=== PATIENT | male | born 1970 | race Caucasian/White ===

== ENCOUNTER 2020-11-02 18:00 | Inpatient (IN) | payer OTHER, SELFPAY ==
[2020-11-02] VITALS (41 sets, daily range): BP systolic 109–185; BP diastolic 66–131; PULSE 54–94; RESP 12–36; TEMP 36.7; O2SAT 94–100
--- NOTE | ~2020-11-02 | XR_ITS ---
EXAMINATION: XR chest ET placement DATE: 11/02/2020 22:46 INDICATION: Intubation. TECHNIQUE: A single frontal view of the chest was obtained. COMPARISON: None. FINDINGS: The chest demonstrates clear lungs without pneumonia, pleural effusion, or pneumothorax. Th e heart size is normal. The endotracheal tube tip is 6.0 cm above the migue. The nasogastric tube ti p is beyond the inferior margin of the radiograph, but at least to the stomach. IMPRESSION: 1. No acute cardiopulmonary disease. Reviewed, dictated and finalized at location A.
--- NOTE | ~2020-11-02 | XR_ITS ---
EXAMINATION: XR abdomen NG/feed tube insert DATE: 11/02/2020 22:46 INDICATION: Orogastric tube placement. TECHNIQUE: A supine view of the abdomen was obtained. COMPARISON: None. FINDINGS: The lower abdomen is excluded. There are no dilated loops of bowel. The nasogastric tube ti p is in the stomach. IMPRESSION: 1. Nasogastric tube tip in the stomach. Reviewed, dictated and finalized at location A.
--- NOTE | ~2020-11-02 | XR_ITS ---
EXAMINATION: XR chest 1V portable DATE: 11/03/2020 06:09 INDICATION: Respiratory failure TECHNIQUE: frontal view of the chest was obtained. COMPARISON: Chest radiograph dated 11/02/2020 FINDINGS: Endotracheal tube tip 5.7 cm above the migue. Nasogastric tube tip in the stomach. No focal airspace opacities, pulmonary edema, pleural effusion or pneumothorax. The cardiomediastinal silhouette is normal. Mild upper thoracic and upper lumbar levocurvature. IMPRESSION: 1. No acute cardiopulmonary disease. Reviewed, dictated and finalized at location A.
--- NOTE | 2020-11-02 18:08 | ECG_ITS ---
Measurements Intervals Remer Rate: 80 P: 46 AZ: 166 QRS: 81 QRSD: 89 T: 53 QT: 370 QTc: 428 Interpretive Statements SINUS RHYTHM POSSIBLE LEFT ATRIAL ENLARGEMENT INCOMPLETE RIGHT BUNDLE BRANCH BLOCK BORDERLINE ECG Electronically Signed On 11-02-2020 18:36:33 CDT by Bc Patterson D.O.
[2020-11-02 18:16] LABS: Basophils Absolute Auto 0.1 K/mm3 (0.0-0.1); Basophils Percent Auto 0.8 % (0.2-1.2); Eosinophils Absolute Auto 0.3 K/mm3 (0-0.3); Eosinophils Percent Auto 4.3 % (0-4.4); Hematocrit 38.7 % (42.0-52.0); Hemoglobin 12.6 g/dL (14.0-18.0); Immature Granulocyte Absolute 0.02 K/mm3 (0.00-0.031); Immature Granulocyte Percent A 0.3 % (0-0.5); Lymphocytes Percent Auto 24.2 % (18.3-44.2); Mean Corpuscular HGB Conc 32.6 g/dl (32-36); Mean Corpuscular Hemoglobin 30.4 pg (26-34); Mean Corpuscular Volume 93.3 fl (80-100); Mean Platelet Volume 9.1 fl (7.4-10.4); Monocytes Absolute Auto 0.7 K/mm3 (0.1-0.6); Monocytes Percent Auto 9.4 % (2.6-8.5); Neutrophils Absolute Auto 4.8 K/mm3 (1.3-6.7); Platelet Count Result 237 k/mm3 (150-375); Red Blood Count 4.15 M/mm3 (4.6-6.20); Red Cell Distribution Width 13.3 % (11.5-14.5); White Blood Count 7.8 K/mm3 (4.5-10.0)
[2020-11-02 18:30] LABS: Acetaminophen < 10 ug/mL (10-30); Ethanol < 10 mg/dL (<10); Salicylate < 1.0 mg/dL (2-20)
[2020-11-02 19:47] LABS: Add Urine Microscopic? YES; Appearance Urine Clear (Clear); Bilirubin Urine Negative (Negative); Blood Urine Negative (Negative); Color Urine Yellow (Yellow); Glucose Urine UA 1+ mg/dL (Negative); Ketones Urine Negative (Negative); Leukocyte Esterase Ur Negative LEU/UL (Negative); Mucus Urine Rare /lpf; Nitrate Urine Negative (Negative); Protein Urine 1+ mg/dL (Negative); RBC Urine 0-2 /hpf (0-2); Specific Grav Ur 1.026 (1.001-1.035); WBC Urine 0-3 /hpf
[2020-11-02 19:58] LABS: Barbiturate Screen Urine Negative (Negative); Benzodiazepines Screen Urine Positive (Negative)
[2020-11-02 19:59] LABS: Cannabinoid Screen Urine Negative (Negative); Cocaine Screen Urine Negative (Negative); Methadone Screen Urine Negative (Negative); Opiate Screen Urine Negative (Negative); Phencyclidine Screen Urine Negative (Negative)
[2020-11-02 20:13] LABS: Alanine Aminotransferase 19 U/L (4-50); Albumin Level 3.7 g/dL (3.5-5.1); Alkaline Phosphatase 68 U/L (38-126); Anion Gap 6 mmol/L (8-16); Aspartate Amino Transferase 27 U/L (17-59); Bilirubin,Total 0.2 mg/dL (0.2-1.3); Blood Urea Nitrogen 20 mg/dL (9-20); Calcium 8.7 mg/dL (8.4-10.2); Carbon Dioxide 26 mmol/L (22-30); Chloride 107 mmol/L (98-107); Estimated CRCL calculation 143 ml/min; Estimated Glomerular Filt Rate > 60; Glucose 111 mg/dL (75-110); Potassium 4.2 mmol/L (3.4-5.0); Sodium 139 mmol/L (137-145)
[2020-11-02 20:14] LABS: Amphetamine Screen Urine Positive (Negative)
[2020-11-02] MEDS: NALOXONE HCL INJ 2 MG/2 ML AMP 4 MG IM (21:02)
--- NOTE | 2020-11-02 21:19 | PC.NURSE ---
Addendum entered by Ramón Augustin RN 11/02/20 21:47: orginal note read alert x ox3, should be o x 1 Original Note: 4 mg of narcan given ivp per erp verbal order pt alert s/p ox 3
--- NOTE | 2020-11-02 21:33 | PC.NURSE ---
pt know lethargic, slurred words has snoring respiration @ times. advised erp.
[2020-11-02] MEDS: NALOXONE HCL INJ 2 MG/2 ML AMP (21:40)
[2020-11-02] MEDS: KETAMINE HCL (*CRX) 500 MG/10 ML VIAL (22:21)
[2020-11-02] MEDS: RAPID SEQUENCE INTUBATION KIT 1 EACH (22:22)
--- NOTE | 2020-11-02 22:23 | PC.NURSE ---
etomidate 20 mg ivp
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
[2020-11-02] MEDS: PROPOFOL IV EMULSION 100 ML 3.39 MG IV CONT (22:45)
--- NOTE | 2020-11-02 22:46 | PC.NURSE ---
pt intubated with a # 8 @ 24 lip line vent 450, 20 peep 5 50 % o2
[2020-11-02 23:24] LABS: Alveolar/Arterial O2 Gradient 96.4 mmHg; Base Excess ABG 0.1 mEq/l (+/-2.0); Fractional Inspired Oxygen 50 %; HCO3 ABG 25.3 mEq/l (22.0-26.0); Methemoglobin ABG 0.4 %THb (0-1.5); Oxygen Content ABG 20.1 %vol (16.0-22.0); Oxygen Saturation ABG 99.4 % (95.0-100.0); Oxyhemoglobin 97.6 % THb (90.0-100.0); PCO2 ABG 42.8 mmHg (35.0-45.0); PO2 FiO2 Ratio Arterial Blood 4.24 %; Total Hemoglobin 14.3 g/dL (12.0-18.0); pH ABG 7.389 (7.350-7.450)
[2020-11-02 23:25] LABS: Arterial Blood Gas PEEP 5 cmH2O; Arterial Blood Gas Tidal Volume 450 ml; Arterial Blood Gas Vent Mode CMV; Arterial Blood Gas Ventilator rate 20 /MIN; Device VENTILATOR; Modified Allen's Test Pass; Site Drawn RIGHT RADIAL
--- NOTE | 2020-11-02 23:47 | PC.NURSE ---
Report received from Ramón BREWER From the Emergency Department by telephone at [phone].
[2020-11-03] VITALS (25 sets, daily range): BP systolic 118–156; BP diastolic 82–97; PULSE 61–88; RESP 14–21; TEMP 36.3–36.7; O2SAT 96–100; BMI 29.9; BMI 30.3
--- NOTE | 2020-11-03 00:21 | ADMGEN ---
This patient, Zeeshan Avendano, was admitted to Intensive Care Unit-6 from the Emergency Department at 0010. Patient/family oriented to hospital policies and general routines including ID bracelet, bed and alarms, visiting hours, pain management, procedures, bathroom and other care routines, personal items, smoking policy, room service/diet, and visiting hours. Information on how to activate the Rapid Response Team has been discussed. Patient/Family are encouraged to report perceived risks to care and to ask questions if they do not understand what they are told or what they should do.
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
[2020-11-03] MEDS: SODIUM CHLORIDE 0.9% IV 1,000 ML 125 ML IV CONT ×2 (00:35→07:58)
[2020-11-03] MEDS: PROPOFOL IV EMULSION 100 ML 13.56 MG IV CONT ×2 (00:52→06:29)
[2020-11-03] MEDS: MIDAZOLAM 100MG/NS 100ML(*CRX) 100 MG/100 ML BAG IV CONT (02:05)
[2020-11-03 05:00] LABS: Alveolar/Arterial O2 Gradient 48.8 mmHg; Carboxyhemoglobin 0.3 % THb (0-2.0); Fractional Inspired Oxygen 30 %; HCO3 ABG 23.2 mEq/l (22.0-26.0); Methemoglobin ABG 0.4 %THb (0-1.5); Oxygen Content ABG 19.1 %vol (16.0-22.0); Oxygen Saturation ABG 98.9 % (95.0-100.0); Oxyhemoglobin 97.5 % THb (90.0-100.0); PCO2 ABG 30.1 mmHg (35.0-45.0); PO2 ABG 129.7 mmHg (80.0-100.0); PO2 FiO2 Ratio Arterial Blood 4.32 %; Reduced Hemoglobin 1.8 %THb (0-5.0); Total Hemoglobin 13.8 g/dL (12.0-18.0); pH ABG 7.505 (7.350-7.450)
[2020-11-03 05:03] LABS: Device VENTILATOR; Modified Allen's Test Unable to perform; Site Drawn RIGHT RADIAL
[2020-11-03 05:04] LABS: Arterial Blood Gas PEEP 5 cmH2O; Arterial Blood Gas Tidal Volume 450 ml; Arterial Blood Gas Vent Mode CMV; Arterial Blood Gas Ventilator rate 20 /MIN
[2020-11-03 08:29] LABS: Basophils Absolute Auto 0.1 K/mm3 (0.0-0.1); Basophils Percent Auto 0.7 % (0.2-1.2); Eosinophils Absolute Auto 0.3 K/mm3 (0-0.3); Eosinophils Percent Auto 2.6 % (0-4.4); Hematocrit 38.5 % (42.0-52.0); Hemoglobin 12.7 g/dL (14.0-18.0); Immature Granulocyte Absolute 0.03 K/mm3 (0.00-0.031); Immature Granulocyte Percent A 0.2 % (0-0.5); Lymphocytes Percent Auto 25.5 % (18.3-44.2); Monocytes Percent Auto 8.1 % (2.6-8.5); Neutrophils Absolute Auto 7.7 K/mm3 (1.3-6.7); Neutrophils Percent Auto 62.9 % (45.5-73.1); Platelet Count Result 248 k/mm3 (150-375); Red Blood Count 4.23 M/mm3 (4.6-6.20); Red Cell Distribution Width 13.3 % (11.5-14.5); White Blood Count 12.2 K/mm3 (4.5-10.0)
[2020-11-03 08:42] LABS: Anion Gap 5 mmol/L (8-16); Blood Urea Nitrogen 18 mg/dL (9-20); Calcium 8.5 mg/dL (8.4-10.2); Carbon Dioxide 26 mmol/L (22-30); Chloride 109 mmol/L (98-107); Estimated CRCL calculation 156 ml/min; Estimated Glomerular Filt Rate > 60; Glucose 106 mg/dL (75-110); Potassium 3.3 mmol/L (3.4-5.0); Sodium 140 mmol/L (137-145)
[2020-11-03 09:21] LABS: HIV 1/2 Ab P24 Ag Result Negative (Negative)
[2020-11-03] MEDS: FAMOTIDINE 20 MG/2 ML VIAL IV PUSH (09:23)
[2020-11-03] MEDS: POTASSIUM CHLORIDE 20 MEQ PACKET (FOR LIQUID) 40 MEQ FEED TUBE (10:25)
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
[2020-11-03] MEDS: NICOTINE (*PBKC) 21 MG PATCH 1 PATCH TRANSDERM (12:21)
--- NOTE | 2020-11-03 16:50 | PM.IMPN ---
Subjective Date/time seen: 11/03/20 16:50 Interval history: 50yo male with a past medical history of polysubstance abuse, hepatitis-C, and CHF who [facility] eating 2 mg Xanax bars. He was intubated in the ED. Patient extubated today. Objective Data Vital Signs Vital Signs: Vital Signs - 24 hr 11/02/20 18:01 11/02/20 18:08 11/02/20 18:15 Temperature 98.0 F Pulse Rate 83 82 79 Respiratory Rate 15 19 18 Blood Pressure 113/75 Pulse Oximetry 99 99 100 11/02/20 18:19 11/02/20 18:30 11/02/20 18:31 Temperature Pulse Rate 79 72 75 Respiratory Rate 21 H 22 H 19 Blood Pressure 115/85 130/80 Pulse Oximetry 100 95 97 11/02/20 18:45 11/02/20 18:46 11/02/20 19:00 Temperature Pulse Rate 74 76 72 Respiratory Rate 35 H 25 H 23 H Blood Pressure 133/87 Pulse Oximetry 94 96 94 11/02/20 19:01 11/02/20 19:15 11/02/20 19:16 Temperature Pulse Rate 77 73 75 Respiratory Rate 19 19 14 Blood Pressure 128/80 140/87 Pulse Oximetry 98 95 99 11/02/20 19:17 11/02/20 19:20 11/02/20 19:30 Temperature Pulse Rate 73 79 89 Respiratory Rate 19 17 24 H Blood Pressure 127/89 127/89 Pulse Oximetry 100 99 11/02/20 19:31 11/02/20 19:45 11/02/20 19:46 Temperature Pulse Rate 73 65 67 Respiratory Rate 13 17 12 Blood Pressure 140/88 154/87 H Pulse Oximetry 11/02/20 19:48 11/02/20 20:00 11/02/20 20:15 Temperature Pulse Rate 74 62 73 Respiratory Rate 13 13 14 Blood Pressure 152/93 H Pulse Oximetry 11/02/20 20:25 11/02/20 20:30 11/02/20 20:45 Temperature Pulse Rate 67 69 54 L Respiratory Rate 18 14 13 Blood Pressure 152/93 H Pulse Oximetry 99 11/02/20 21:00 11/02/20 21:15 11/02/20 21:30 Temperature Pulse Rate 59 L 57 L 94 Respiratory Rate 13 18 24 H Blood Pressure Pulse Oximetry 99 11/02/20 21:45 11/02/20 22:02 11/02/20 22:05 Temperature Pulse Rate 93 93 81 Respiratory Rate 31 H 36 H 24 H Blood Pressure 160/131 H Pulse Oximetry 96 11/02/20 22:15 11/02/20 22:16 11/02/20 22:25 Temperature Pulse Rate 91 89 69 Respiratory Rate 21 H 25 H 26 H Blood Pressure 160/112 H 185/110 H Pulse Oximetry 97 99 100 11/02/20 22:30 11/02/20 22:31 11/02/20 22:45 Temperature Pulse Rate 89 93 94 Respiratory Rate 22 H 20 18 Blood Pressure 159/112 H Pulse Oximetry 99 11/02/20 22:53 11/02/20 23:00 11/02/20 23:02 Temperature Pulse Rate 79 77 73 Respiratory Rate 18 20 22 H Blood Pressure 109/66 184/125 H Pulse Oximetry 100 99 100 11/02/20 23:15 11/02/20 23:52 11/03/20 00:10 Temperature 97.8 F Pulse Rate 84 87 73 Respiratory Rate 18 18 20 Blood Pressure 130/87 137/97 H Pulse Oximetry 94 100 11/03/20 00:17 11/03/20 00:52 11/03/20 01:44 Temperature Pulse Rate 73 70 71 Respiratory Rate 20 Blood Pressure Pulse Oximetry 100 11/03/20 02:00 11/03/20 02:05 11/03/20 04:00 Temperature 97.6 F Pulse Rate 72 71 86 Respiratory Rate 20 20 20 Blood Pressure 145/93 H 122/94 H Pulse Oximetry 100 100 11/03/20 05:11 11/03/20 06:00 11/03/20 06:29 Temperature Pulse Rate 81 79 76 Respiratory Rate 20 20 Blood Pressure 120/84 Pulse Oximetry 100 100 11/03/20 06:30 11/03/20 06:35 11/03/20 08:00 Temperature Pulse Rate 71 71 77 Respiratory Rate 20 20 20 Blood Pressure 127/96 H Pulse Oximetry 100 11/03/20 08:02 11/03/20 08:06 11/03/20 09:13 Temperature Pulse Rate 70 71 66 Respiratory Rate 20 20 Blood Pressure Pulse Oximetry 99 11/03/20 09:20 11/03/20 09:25 11/03/20 10:00 Temperature Pulse Rate 68 74 71 Respiratory Rate 20 20 20 Blood Pressure 156/86 H Pulse Oximetry 100 11/03/20 10:15 11/03/20 10:30 11/03/20 12:00 Temperature 97.3 F L Pulse Rate 70 70 86 Respiratory Rate 21 H 21 H 14 Blood Pressure 149/82 H Pulse Oximetry 96 11/03/20 14:00 11/03/20 16:00 Temperature 97.4 F L Pulse Rate 80 88 Respiratory Rate
--- NOTE | 2020-11-03 16:58 | PM.DS ---
DS: Admitting Diagnosis Admitting Diagnosis Admitting Diagnosis: Unintentional drug overdose. DS: Discharge Diagnosis Discharge Diagnosis (1) Respiratory failure: Qualifiers: Chronicity: acute Respiratory failure complication: unspecified whether with hypoxia or hypercapnia Qualified Code(s): J96.00 - Acute respiratory failure, unspecified whether with hypoxia or hypercapnia Code(s): J96.90 - Respiratory failure, unspecified, unspecified whether with hypoxia or hypercapnia Status: Acute (2) Drug overdose: Qualifiers: Encounter type: initial encounter Injury intent: accidental or unintentional Qualified Code(s): T50.901A - Poisoning by unspecified drugs, medicaments and biological substances, accidental (unintentional), initial encounter Code(s): T50.901A - Poisoning by unspecified drugs, medicaments and biological substances, accidental (unintentional), initial encounter Status: Acute (3) Polysubstance abuse: Code(s): F19.10 - Other psychoactive substance abuse, uncomplicated Status: Acute (4) Tobacco abuse disorder: Code(s): Z72.0 - Tobacco use Status: Acute (5) Hypokalemia: Code(s): E87.6 - Hypokalemia Status: Acute (6) CHF (congestive heart failure): Code(s): I50.9 - Heart failure, unspecified Status: Inactive (7) Hepatitis C: Code(s): B19.20 - Unspecified viral hepatitis C without hepatic coma Status: Inactive DS: Summary Hospital Course Reason for hospitalization: 50yo male with a past medical history of polysubstance abuse, hepatitis-C, and CHF who [facility] from [facility] after eating 2 mg Xanax bars. Please see H&P for details. Hospital Course: Patient was being booked into senior living when he took Xanax He states he took these because he did not want to be found with these medications. He does not remember much else until he woke up in the ICU. The police confiscated methamphetamines and fentanyl that the patient had on his person. He told the ER staff that he had taken some fentanyl and Xanax to get high. The patient was lethargic when he was brought in. He was oriented to his name and he thought he was at [facility]. The patient received intranasal Narcan in route to the hospital without any improvement in his symptoms. After IV Narcan, patient became alert and oriented but then violent and aggressive. He then received ketamine after which time he developed snoring respirations and had an episode of emesis. He was intubated for airway protection and admitted to the ICU. ABG 7.39/43/212 after intubation. CMP, CBC and TSH normal. UDS positive for amphetamines and Benzodiazepines. CXR clear on admission. He was treated with Zosyn possible aspiration. Repeat chest x-ray however remain clear. White count was normal on admission but climbed 12,000 on repeat. No fevers. It was felt that the patient did not aspirate. By the following day, patient became more awake and alert. He was able to be extubated to room air. He has been up ambulating to the bathroom without difficulty. Eating normally. He is requesting discharge. Patient appears to be back to his baseline and felt stable enough for discharge home. Status at Discharge Cognitive/behavioral status at discharge: Stable Time Spent with Patient Time attestation: Total time spent providing and/or coordinating discharge services: 40 minutes Time spent: Greater than 30 minutes Exam Narrative: Exam Narrative: AF 97.4 134/92 88 14 96% ra Gen - NARD Chest - CTA bilaterally, nml RR CV - RRR S1/S2. Telemetry showing no significant dysrhythmias Abd - Soft, NT/ND, Positive BS Ext - No pedal edema Neuro - Alert and oriented. Nonfocal exam. Psych - Nml mood and affect Skin -acrocyanosis to his hands and feet. DS: Data Data Completed and Pending Labs on day of discharge: Labs from last 24 hours 11/03/20 11/03/20 11/03/20 08:07 0
--- NOTE | 2020-11-09 12:13 | PC.NURSE ---
Blood cx are negative. Dr. Narciso dias.
== END 2020-11-03 17:30 | disposition home or self-care (01) | DRG 812 ==
LOC: ANHED 22:36 → ANHICU 23:29
PROVIDERS: Admitting Provider Internal Medicine; Emergency Provider Family Medicine; Visit Provider Internal Medicine
DX: T50.901A Poisoning by unspecified drugs, medicaments and biological substances, accidental (unintentional), initial encounter (principal); J96.00 Acute respiratory failure, unspecified whether with hypoxia or hypercapnia; F19.10 Other psychoactive substance abuse, uncomplicated; F17.210 Nicotine dependence, cigarettes, uncomplicated; E87.6 Hypokalemia; I50.9 Heart failure, unspecified; B19.20 Unspecified viral hepatitis C without hepatic coma
CPT/HCPCS: 31500; 36415; 36600; 51701; 71045; 80048; 80053; 80307; 81001; 82375; 82805; 83050; 84443; 85025; 86703; 87040; 93005; 94002; 94003; 96365; 96375; 96376; 99291; A9270; G0432; J0330; J2250; J2310; J2405; J2543; J2704; J7030

== ENCOUNTER 2021-06-21 19:04 | Emergency (ER) | payer OTHER, SELFPAY ==
[2021-06-21 19:07] VITALS: BP 135/97; PULSE 66; RESP 16; TEMP 36.6; O2SAT 95
[2021-06-21 19:27] VITALS: RESP 12
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
[2021-06-21 20:15] LABS: Add Urine Microscopic? YES; Appearance Urine Clear (Clear); Bilirubin Urine Negative (Negative); Blood Urine Negative (Negative); Color Urine Yellow (Yellow); Glucose Urine UA 1+ mg/dL (Negative); Ketones Urine Negative (Negative); Leukocyte Esterase Ur Negative LEU/UL (Negative); Mucus Urine Rare /lpf; Nitrate Urine Negative (Negative); Protein Urine Negative (Negative); RBC Urine 0-2 /hpf (0-2); Specific Grav Ur 1.017 (1.001-1.035); Urobilinogen Urine Negative mg/dL (<2.0); WBC Urine 0-3 /hpf
--- NOTE | 2021-06-21 20:22 | PC.NURSE ---
Pt very difficult stick. Unable to obtain blood. 2nd person to try
[2021-06-21 20:30] LABS: Barbiturate Screen Urine Negative (Negative); Benzodiazepines Screen Urine Negative (Negative)
[2021-06-21 20:38] LABS: Cannabinoid Screen Urine Negative (Negative); Cocaine Screen Urine Negative (Negative); Methadone Screen Urine Negative (Negative); Opiate Screen Urine Negative (Negative); Phencyclidine Screen Urine Negative (Negative)
[2021-06-21 20:58] LABS: Amphetamine Screen Urine Positive (Negative)
[2021-06-21 21:00] VITALS: BP 114/80; PULSE 67; RESP 13; O2SAT 100
--- NOTE | 2021-06-21 21:08 | PC.NURSE ---
This RN and Flower Grower Heather attempted to draw blood and start IV on pt. Unsuccessful. Phlebotomy called at this time. States she is in a code blue and will come to draw blood on pt when available.
[2021-06-21 21:47] LABS: Basophils Absolute Auto 0.1 K/mm3 (0.0-0.1); Basophils Percent Auto 1.2 % (0.2-1.2); Eosinophils Absolute Auto 0.5 K/mm3 (0-0.3); Eosinophils Percent Auto 7.4 % (0-4.4); Hematocrit 40.4 % (42.0-52.0); Immature Granulocyte Absolute 0.02 K/mm3 (0.00-0.031); Immature Granulocyte Percent A 0.3 % (0-0.5); Lymphocytes Absolute Auto 2.67 K/mm3 (0.9-3.2); Mean Corpuscular HGB Conc 32.2 g/dl (32-36); Mean Corpuscular Hemoglobin 30.8 pg (26-34); Mean Corpuscular Volume 95.7 fl (80-100); Mean Platelet Volume 9.1 fl (7.4-10.4); Monocytes Absolute Auto 0.6 K/mm3 (0.1-0.6); Monocytes Percent Auto 9.4 % (2.6-8.5); Neutrophils Absolute Auto 2.7 K/mm3 (1.3-6.7); Neutrophils Percent Auto 40.7 % (45.5-73.1); Platelet Count Result 203 k/mm3 (150-375); Red Blood Count 4.22 M/mm3 (4.6-6.20); Red Cell Distribution Width 13.5 % (11.5-14.5); White Blood Count 6.5 K/mm3 (4.5-10.0)
[2021-06-21 21:50] VITALS: BP 111/79; PULSE 63; RESP 13; O2SAT 98
[2021-06-21 21:58] LABS: Alanine Aminotransferase 17 U/L (4-50); Albumin Level 4.1 g/dL (3.5-5.1); Alkaline Phosphatase 65 U/L (38-126); Anion Gap 4 mmol/L (8-16); Aspartate Amino Transferase 24 U/L (17-59); Bilirubin,Total 0.4 mg/dL (0.2-1.3); Blood Urea Nitrogen 17 mg/dL (9-20); Calcium 9.3 mg/dL (8.4-10.2); Carbon Dioxide 31 mmol/L (22-30); Chloride 103 mmol/L (98-107); Estimated CRCL calculation 96 ml/min; Estimated Glomerular Filt Rate > 60; Glucose 94 mg/dL (65-110); Potassium 4.2 mmol/L (3.4-5.0); Sodium 138 mmol/L (137-145)
[2021-06-21 22:58] VITALS: BP 109/76; PULSE 59; RESP 12; O2SAT 94
[2021-06-22 00:21] VITALS: BP 127/79; PULSE 74; RESP 14; O2SAT 100
--- NOTE | 2021-06-22 00:39 | PC.NURSE ---
Pt discharged. calling for ride at this time.
== END 2021-06-22 00:40 | disposition home or self-care (01) ==
PROVIDERS: Emergency Provider Emergency Medicine
DX: F19.10 Other psychoactive substance abuse, uncomplicated (principal); I50.9 Heart failure, unspecified; I25.2 Old myocardial infarction; Z86.19 Personal history of other infectious and parasitic diseases; Z85.46 Personal history of malignant neoplasm of prostate; F17.210 Nicotine dependence, cigarettes, uncomplicated; M79.5 Residual foreign body in soft tissue
CPT/HCPCS: 36415; 80053; 80307; 81001; 85025; 99283

== ENCOUNTER 2022-07-14 23:40 | Emergency (ER) | payer OTHER, SELFPAY ==
--- NOTE | ~2022-07-14 | CT_ITS ---
EXAMINATION: CTA chest PE protocol DATE: 07/15/2022 02:08 INDICATION: Chest pain, lower limb swelling TECHNIQUE: Computed tomography angiography (CTA) of the chest was performed with 100 mL Omnipaque-350 intravenous contrast timed to evaluate the pulmonary arteries. Coronal maximum intensity projection 3D-reconstructions were created by the technologist. Automated exposure control and iterative reconst ruction technique were employed. Exam dose: 413.36 mGy-cm total exam DLP. COMPARISON: 07/15/2022 PA and lateral chest FINDINGS: There is diagnostic contrast enhancement of the pulmonary arteries and no evidence of pulmo nary embolism. No thoracic aortic aneurysm or dissection. Normal heart size. No pericardial or pleural effusion. Bilateral lower lobe dependent atelectasis. No pulmonary consolidation. No hilar or mediastinal mass lesion or lymphadenopathy. Mild bilateral gynecomastia. Small sliding hernia. Degenerative spurring of the thoracic and upper lumbar spine. Prominent degenerative disc disease cer vical spine. No suspicious osteolytic or osteoblastic lesions are noted. IMPRESSION: No evidence of pulmonary embolism Reviewed, dictated and finalized at [facility]. Reviewed, dictated and finalized at [facility]. ONAL FACILITIES MANAGER
--- NOTE | ~2022-07-14 | XR_ITS ---
EXAMINATION: XR chest 2V DATE: 07/15/2022 00:28 INDICATION: Diffuse chest pain TECHNIQUE: PA and lateral views of the chest were obtained. COMPARISON: Chest radiograph dated 11/03/2020 FINDINGS: Mild right apical pleural-parenchymal scarring. No other airspace opacities, pulmonary edema, pleural effusion or pneumothorax. The cardiomediastinal silhouette is normal. Mild upper thoracic levocurvat ure. Chronic mild anterior wedging at T12. Moderate lower thoracic spondylosis. IMPRESSION: 1. No acute cardiopulmonary disease. Reviewed, dictated and finalized at [facility]. H WORKER BINDING
--- NOTE | 2022-07-14 23:42 | ECG_ITS ---
Measurements Intervals [place] Rate: 77 P: 54 AL: 173 QRS: 80 QRSD: 97 T: 43 QT: 394 QTc: 447 Interpretive Statements SINUS RHYTHM POSSIBLE LEFT ATRIAL ENLARGEMENT [-0.1mV P WAVE IN V1/V2] POSSIBLE RIGHT VENTRICULAR CONDUCTION DELAY [RSR (QR) IN V1/V2] COMPARED TO ECG 11/02/2020 18:15:48 NO SIGNIFICANT CHANGES Electronically Signed On 07-15-2022 7:45:57 CLEARING INSPECTOR by Yandel Stone M.D.
[2022-07-14 23:44] VITALS: BP 122/75; PULSE 78; RESP 11; TEMP 37.1
[2022-07-14 23:47] VITALS: PULSE 73
[2022-07-15] VITALS (16 sets, daily range): BP systolic 104–128; BP diastolic 65–83; PULSE 61–67; RESP 9–15; O2SAT 89–97
[2022-07-15] MEDS: ASPIRIN 81 MG CHEWABLE TABLET 324 MG PO (00:14)
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
[2022-07-15 00:29] LABS: Basophils Absolute Auto 0.1 K/mm3 (0.0-0.1); Basophils Percent Auto 0.8 % (0.2-1.2); Eosinophils Absolute Auto 0.3 K/mm3 (0-0.3); Eosinophils Percent Auto 4.3 % (0-4.4); Hematocrit 35.9 % (42.0-52.0); Hemoglobin 11.8 g/dL (14.0-18.0); Immature Granulocyte Absolute 0.03 K/mm3 (0.00-0.031); Immature Granulocyte Percent A 0.4 % (0-0.5); Lymphocytes Absolute Auto 2.39 K/mm3 (0.9-3.2); Lymphocytes Percent Auto 33.3 % (18.3-44.2); Mean Corpuscular HGB Conc 32.9 g/dl (32-36); Mean Corpuscular Hemoglobin 31.4 pg (26-34); Mean Corpuscular Volume 95.5 fl (80-100); Monocytes Absolute Auto 0.7 K/mm3 (0.1-0.6); Monocytes Percent Auto 9.7 % (2.6-8.5); Neutrophils Absolute Auto 3.7 K/mm3 (1.3-6.7); Neutrophils Percent Auto 51.5 % (45.5-73.1); Platelet Count Result 213 k/mm3 (150-375); Red Blood Count 3.76 M/mm3 (4.6-6.20); Red Cell Distribution Width 12.8 % (11.5-14.5); White Blood Count 7.2 K/mm3 (4.5-10.0)
[2022-07-15 00:40] LABS: Alanine Aminotransferase 23 U/L (6-50); Albumin Level 4.1 g/dL (3.5-5.1); Alkaline Phosphatase 67 U/L (38-126); Anion Gap 5 mmol/L (8-16); Aspartate Amino Transferase 30 U/L (17-59); Bilirubin,Total 0.3 mg/dL (0.2-1.3); Blood Urea Nitrogen 20 mg/dL (9-20); Calcium 8.6 mg/dL (8.4-10.2); Carbon Dioxide 31 mmol/L (22-30); Chloride 105 mmol/L (98-107); Estimated CRCL calculation 86 ml/min; Estimated Glomerular Filt Rate > 60; Glucose 101 mg/dL (65-110); Lipase 22 U/L (23-300); Potassium 3.9 mmol/L (3.4-5.0); Sodium 141 mmol/L (137-145)
[2022-07-15 00:44] LABS: Partial Thromboplastin Time 28.6 SECONDS (22.3-36.8); Prothrombin Time 12.9 Seconds (11.1-14.7)
[2022-07-15 00:48] LABS: D Dimer 0.61 ug/mL (<0.48)
[2022-07-15 00:51] LABS: Troponin I < 0.012 ng/mL (0.000-0.034)
[2022-07-15 03:57] LABS: Troponin I < 0.012 ng/mL (0.000-0.034)
== END 2022-07-15 04:11 ==
PROVIDERS: Emergency Provider Emergency Medicine
DX: R07.9 Chest pain, unspecified (principal); I50.9 Heart failure, unspecified; I25.2 Old myocardial infarction; S81.842 Puncture wound with foreign body, left lower leg; W34.00XS Accidental discharge from unspecified firearms or gun, sequela; M79.5 Residual foreign body in soft tissue; Z86.19 Personal history of other infectious and parasitic diseases; Z85.46 Personal history of malignant neoplasm of prostate; F17.210 Nicotine dependence, cigarettes, uncomplicated; R94.31 Abnormal electrocardiogram [ECG] [EKG]
CPT/HCPCS: 36415; 71046; 71275; 80053; 83690; 84484; 85025; 85380; 85610; 85730; 93005; 99284; A9270; Q9967